=== PATIENT | male | born 1990 | race Caucasian/White ===

== ENCOUNTER 2024-10-05 17:17 | Inpatient (IN) | payer OTHER ==
[2024-10-05 18:08] VITALS: BMI 26.4
[2024-10-05] MEDS ORDERED: BENZOCAINE/MENTHOL (CHLORASEPTIC ) LOZENGE MM PRN (18:45)
[2024-10-05] MEDS ORDERED: BENZONATATE 200 MG CAPSULE PO PRN (18:45)
[2024-10-05] MEDS ORDERED: LOPERAMIDE HCL 2 MG CAPSULE PO PRN (18:45)
[2024-10-05] MEDS ORDERED: POLYETHYLENE GLYCOL (HEALTHYLAX) 3350 17 GM PACKET PO PRN (18:45)
[2024-10-05] MEDS ORDERED: guaiFENesin 600 MG TABLET.ER (FP) PO PRN (18:45)
[2024-10-05] MEDS ORDERED: ONDANSETRON *ODT* 4 MG TABLET SL PRN (18:45)
[2024-10-05] MEDS ORDERED: NICOTINE POLACRILEX 2 MG GUM BUC PRN (18:45)
[2024-10-05] MEDS ORDERED: BISMUTH SUBSALICYLATE 524 MG/30 ML PO PRN (18:45)
[2024-10-05] MEDS ORDERED: MAGNESIUM HYDROX 2400MG/30ML ORAL SUSPENSION 30 ML CUP PO PRN (18:45)
[2024-10-05] MEDS ORDERED: MAG HYDROX/AL HYDROX/SIMETH 30 ML UNIT-DOSE CUP PO PRN (18:45)
[2024-10-05] MEDS ORDERED: DICYCLOMINE HCL 10 MG CAPSULE PO PRN (18:45)
[2024-10-05] MEDS ORDERED: IBUPROFEN 400 MG TABLET (FP) PO PRN (18:45)
[2024-10-05] MEDS ORDERED: NALOXONE (NARCAN) HCL 4 MG/0.1 ML SPRAY NS PRN (18:45)
[2024-10-05] MEDS: ACETAMINOPHEN 325 MG TABLET (FP) PO PRN (20:42)
[2024-10-05] MEDS: hydrOXYzine PAMOATE 25 MG CAPSULE (FP) PO PRN (20:42)
[2024-10-05] MEDS: diazePAM 5 MG TABLET PO SCH (22:06)
[2024-10-05] MEDS: THIAMINE 100 MG TABLET PO SCH (22:06)
[2024-10-05] MEDS: levETIRAcetam 500 MG TABLET (FP) PO SCH (22:06)
[2024-10-05] MEDS: MELATONIN 5 MG TABLETS PO SCH (22:06)
[2024-10-05] MEDS: METHOCARBAMOL 500 MG TABLET PO PRN (22:07)
[2024-10-06] MEDS ORDERED: LEVOTHYROXINE NA 125 MCG TABLET (FP) PO SCH (06:00)
[2024-10-06] MEDS: LEVOTHYROXINE 100 MCG, LEVOTHYROXINE 25 MCG PO SCH (07:58)
[2024-10-06] MEDS ORDERED: methaDONE HCL 10 MG TABLET PO SCH (09:00)
[2024-10-06] MEDS: PRENATAL VITAMINS W/ FOLIC ACID TABLET (FP) PO SCH (09:50)
[2024-10-06] MEDS: BICTEGRAV/EMTRICIT/TENOFOV (BIKTARVY) 50-200-25 MG TABLET PO SCH (09:50)
[2024-10-06] MEDS: NICOTINE 14 MG/24 HOURS TOPICAL PATCH TD SCH (09:50)
[2024-10-06 10:36] LABS: HEMATOCRIT 33.7 % (40.1-51.0); HEMOGLOBIN 10.9 g/dL (13.7-17.5); MCHC 32.3 g/dl (32.3-36.5); MEAN CELL VOLUME 92.6 fl (79.0-92.2); MEAN PLT VOLUME 11.5 fl (9.4-12.4); PLATELET COUNT 276 x10^3/uL (163-337); RDW 13.6 % (12.0-15.6)
[2024-10-06 10:44] LABS: CHLORIDE 108 mmol/L (98-107); POTASSIUM 4.1 mmol/L (3.5-5.1); SODIUM 143 mmol/L (136-145)
[2024-10-06 10:49] LABS: SGOT/AST 13 U/L (15-37); SGPT/ALT 24 U/L (13-61)
[2024-10-06 10:50] LABS: ANION GAP 4 mmol/L (4-13); BLOOD UREA NITROGEN 7.6 mg/dL (7-18); CALCIUM 9.1 mg/dL (8.5-10.1); CO2 31 mmol/L (21-32); GLUCOSE,RANDOM 115 mg/dL (74-106)
[2024-10-06 10:51] LABS: BILIRUBIN,TOTAL 0.2 mg/dL (0.2-1); TOT PROT 5.7 g/dl (6.4-8.2)
[2024-10-06 10:52] LABS: ALK PHOS 92 U/L (45-117)
[2024-10-06 10:54] LABS: CREATININE 0.9 mg/dL (0.55-1.3)
[2024-10-06] MEDS: diazePAM 5 MG TABLET PO PRN (12:36)
[2024-10-06] MEDS: IBUPROFEN 600 MG TABLET (FP) PO PRN (12:38)
[2024-10-06] MEDS: MIRTAZAPINE 15 MG TABLET (FP) PO SCH (22:02)
[2024-10-07] MEDS: diazePAM 5 MG TABLET PO SCH (05:42)
[2024-10-08] MEDS: diazePAM 5 MG TABLET PO SCH (05:40)
[2024-10-09] MEDS: diazePAM 5 MG TABLET PO ONE (05:51)
[2024-10-09 06:15] VITALS: RESP 18
[2024-10-09 09:30] VITALS: BP 119/67; PULSE 88; TEMP 97.8
== END 2024-10-09 10:06 | disposition home or self-care (01) | DRG 773 ==
LOC: YASAS 17:17 → Y3N 20:12
PROVIDERS: ADMIT Allergy & Immunology; ATTEND Allergy & Immunology
PROC: HZ2ZZZZ Detoxification Services for Substance Abuse Treatment (ICD-10-PCS; principal; 2024-10-05)
DX: F10.230 Alcohol dependence with withdrawal, uncomplicated (principal); F13.230 Sedative, hypnotic or anxiolytic dependence with withdrawal, uncomplicated; F11.20 Opioid dependence, uncomplicated; F14.20 Cocaine dependence, uncomplicated; F17.210 Nicotine dependence, cigarettes, uncomplicated; F41.9 Anxiety disorder, unspecified; F32.A Depression, unspecified; Z21 Asymptomatic human immunodeficiency virus [HIV] infection status; E03.9 Hypothyroidism, unspecified; Z56.0 Unemployment, unspecified; Z59.02 Unsheltered homelessness; Z79.899 Other long term (current) drug therapy
CPT/HCPCS: 36415; 80053; 80305; 80307; 84443; 85027; 86780; 93005; 93010